=== PATIENT | female | born 1940 | race Caucasian/White ===

== ENCOUNTER → 2023-04-03 14:55 | Outpatient (REF) | payer OTHER, SELFPAY | LOC: RCS 14:55 | PROVIDERS: ATTENDING PHYSICIAN Orthopaedic Surgery; FAMILY PHYSICIAN Physician Assistant | DX: Z01.818 Encounter for other preprocedural examination (principal) | CPT/HCPCS: 93005 ==

== ENCOUNTER → 2023-04-28 12:30 | Outpatient (REF) | payer OTHER, SELFPAY | LOC: DHCBC HW 12:30 | PROVIDERS: ATTENDING PHYSICIAN Internal Medicine Cardiovascular Disease; FAMILY PHYSICIAN Physician Assistant | DX: R94.31 Abnormal electrocardiogram [ECG] [EKG] (principal); R06.09 Other forms of dyspnea; I35.0 Nonrheumatic aortic (valve) stenosis | CPT/HCPCS: 93306 ==

== ENCOUNTER → 2023-05-02 11:28 | Outpatient (REF) | payer OTHER, SELFPAY | LOC: DHCBC/DCA 11:28 | PROVIDERS: ATTENDING PHYSICIAN Internal Medicine Cardiovascular Disease; FAMILY PHYSICIAN Physician Assistant | DX: R94.31 Abnormal electrocardiogram [ECG] [EKG] (principal); R06.09 Other forms of dyspnea | CPT/HCPCS: 78452; 93017; A9500; J2785 ==

== ENCOUNTER 2023-05-11 06:21 | Inpatient (IN) | payer OTHER, SELFPAY ==
--- NOTE | 2023-05-03 09:21 | CM ---
Patient is scheduled for an elective L TKR on 05/15/23. Spoke with patient and her prior to surgery via telephone. Introduced role of Orthopedic Navigator. Patient reports that she lives with her in a two story home. There is one step
to enter and a flight of steps to the second floor. There is a stair glide to the second floor which patient uses. She currently functions independently and uses a rolling walker. She also has a cane and shower seat. She has never had VN services.
PCP is Kristina Stanley.
Discussed orthopedic program and post surgical plans. Reviewed anticipated length of stay and that goal is for her to return home at discharge. Also reviewed outpatient PT. Patient is in agreement with tentative plan and will go directly to
outpatient PT at [facility], [place]. She will have support from her when she goes home.
Patient will complete online education.
Plan: Orthopedic Navigator will remain available to assist with the care of patient and will reassess discharge needs after surgery.
[2023-05-04 13:13] VITALS: BMI 39.8
[2023-05-04 14:03] LABS: Hematocrit 41.9 % (37.0-47.0); Hemoglobin 13.8 g/dL (12.0-16.0); Mean Corp Hgb Conc. 32.9 g/dL (33.0-37.0); Mean Corpuscular Hgb 29.7 pg (27.0-31.0); Mean Corpuscular Volume 90.1 fL (81.0-99.0); Mean Platelet Volume 9.9 fL (7.4-10.4); Platelet Count 215 10^3/uL (130-400); Red Blood Cell Count 4.65 10^6/uL (4.20-5.40); Red Cell Dist. Width 13.3 % (11.5-14.5); White Blood Cell Count 5.8 10^3/uL (4.8-10.8)
[2023-05-04 14:39] LABS: ALT (SGPT) 20 U/L (0-35); AST (SGOT) 22 U/L (14-36); Albumin 3.8 g/dl (3.5-5.0); Alkaline Phosphatase 85 U/L (38-126); Blood Urea Nitrogen 18 mg/dl (7-17); Calcium 9.6 mg/dl (8.4-10.2); Carbon Dioxide 32 mmol/L (22-30); Chloride 103 mmol/L (98-107); Estimated Creatinine Clearance 51 ml/min; Glucose 94 mg/dl (70-99); Potassium 4.2 mmol/L (3.5-5.1); Sodium 141 mmol/L (135-145); Total Bilirubin 0.4 mg/dl (0.2-1.3); Total Protein 6.7 g/dl (6.3-8.2); eGFR > 60.00
[2023-05-05 11:15] LABS: Glycohemoglobin (HgbA1c) 5.9 % (4.0-5.6)
[2023-05-11] VITALS (17 sets, daily range): BP systolic 134–179; BP diastolic 63–96; BMI 39.8
[2023-05-11] MEDS: CELEBREX 200 MG PO (11:36)
[2023-05-11] MEDS: TYLENOL 650 MG PO ×3 (11:36→23:22)
[2023-05-11] MEDS: NORMOSOL-R 1000 IV ×2 (11:53→16:05)
--- NOTE | 2023-05-11 14:31 | W.PN.UPDATE ---
Update Note
Progress Note Update
L knee OA s/p L TKA w/ Dr Walden 05/11/23
- s/p R TKA, 09/2020, by Dr Walden
DVT prophylaxis - ASA, b/l venous foot pumps
HTN - + parameters - monitor BP
Moderate , pulmonary HTN per recent echo - reduce hourly IVF rate to prevent fluid overload
HLD
Chronic SALINAS
Nephrolithiasis
Hypothyroidism
Glaucoma
L eye macular degeneration
Rosacea
Shingles 2011
Hearing impairment
--- NOTE | 2023-05-11 17:04 | OR.RPT ---
Operative Report
Operative Report
Orthopaedic Surgery Operative Note
DATE OF OPERATION: 05/11/2023
PREOPERATIVE DIAGNOSES: Osteoarthritis, left knee.
POSTOPERATIVE DIAGNOSES: Osteoarthritis, left knee.
OPERATION PERFORMED: Left total knee arthroplasty (96854 with 22 modifier).
SURGEON: Zia Walden MD
ASSISTANTS: Gabby Orellana PA-C who assisted with patient and limb positioning and retraction
ANESTHESIA: Spinal
COMPLICATIONS: None.
ESTIMATED BLOOD LOSS: 20mL
DRAINS: None
TOURNIQUET TIME: 53 minutes.
IMPLANTS:
- Naima Persona CR Femur, size 6
- Naima Persona tibia base plate, size C
- Naima Persona ultracongruent articular surface, 10 mm
- DJO [place] bone cement
INDICATIONS: The patient presented to my office with debilitating left knee pain due to osteoarthritis. She had successful right TKA with me two years prior. We reviewed the natural history of this problem, as well as the risks, benefits, and
alternatives of various treatment options. The patient exhausted all nonoperative treatment options and wished to proceed with knee replacement surgery. The patient understood the risks which included, but were not limited to, bleeding, infection,
failure to relieve pain, more pain than preop, damage to blood vessels and nerves, need for reoperation, mechanical failure of the implants, wound healing problems, stiffness, instability, blood clot, pulmonary embolism, myocardial infarction,
pneumonia, arrhythmia, CVA, and . The patient accepted these risks and wished to proceed. All questions were answered, and informed consent was obtained.
PROCEDURE IN DETAIL: The patient was identified in the preoperative holding area. The left knee was identified as the operative site. The patient was taken in the operating room and placed in a supine position on the operating table. Spinal
anesthesia was performed. IV antibiotics and tranexamic acid were administered. A bump was placed under the left hemipelvis. A well-padded tourniquet was placed on the proximal thigh. All bony prominences were well padded. The left lower extremity
was prepped and draped in the usual sterile fashion.
We performed a surgical time-out. An interarticular block was performed with local anesthetic with epinephrine. The limb was exsanguinated with an Esmarch bandage, then the tourniquet was inflated to 250 mmHg. A midline skin incision was made
followed by a medial parapatellar arthrotomy. A subperiosteal peel was performed on the medial tibia. I excised part of the infrapatellar fat pad to improve our visualization as well as tissue over anterior femur. The patella was everted and the
knee was flexed. I excised the remnants of the anterior and posterior cruciate ligaments as well as tibial and femoral osteophytes with rongeurs.
The knee was flexed, and the extramedullary tibial cutting guide was aligned. Mason was aligned at neutral, rotation was centered on the tibial tubercle, and coronal alignment was aligned with the mechanical axis of the tibia and center of the ankle
joint. The cut height was 10mm off the lateral tibia joint surface. The guide was secured into place. The MCL and LCL were protected. The tibia surface was cut. The cut surface was inspected after removal to ensure appropriate height and slope based
on the preoperative plan. The cut was checked with a drop kacey. It was centered nicely at the ankle.
A drill was used to open the femoral canal. The intramedullary distal femoral cutting guide was inserted into the femur. This was set at 5 degrees +0. This was secured into place with three pins. The cut level was checked with an yvan wing. The
distal femur was cut through the cutting guide. The IM guide was reinserted to double check that the level of resection was flush and in appropriate alignment.
[place]land�s line and the transepicondylar axis were marked on the femur. The femoral sizing guide was applied to the anterior femur. Pins were inserted, and the 4-in-1 cutting guide was applied and secured into place. The rotation was compared to
[place]land�s line, the transepicondylar axis, and the neutral tibia cut and was found to be appropriate. The width was checked and found to be appropriate and lateralized on the femur. The anterior, posterior, and chamfur cuts were made. A lamina
prospect manager was used to open the flexion gap, and posterior osteophytes were removed with a curved osteotome. The remnant medial and lateral meniscus were also removed. I prophylactically cauterized the lateral geniculate arteries. A 10mm spacer block
was applied to the flexion gap and was noted to be balanced medially and laterally. The knee was extended, and the block showed symmetric to extension and flexion gaps.
The tibia was exposed and sized. Rotation was set in line with the tibial tubercle and congruent with the femur. The trial was secured into place with two pins. The trial femur was impacted into place, and a trial articular surface was placed. The
knee was taken through range of motion and noted to be stable throughout the arc of motion without gaping or excess tension. The patella tracked centrally throughout the arc of motion without need for further releases. No full thickness cartilage
defects were noted.
The trials were removed. The tibia keel was prepared with the punch and the drill. The bone surfaces were irrigated with sterile saline and dried. The cement was mixed in a vacuum mixer. Cement gun was used to apply cement to the tibial surface and
the undersurface of the tibial implant. Cement was pressurized into the tibial canal and tibia surface. The tibial component was impacted into place. Excess cement was removed. Cement was applied to the femoral surface and the femoral component. The
femoral component was impacted into place, and excess cement removed. A trial articular surface was inserted, and the knee was extended while the cement polymerized. The tourniquet was let down, and meticulous hemostasis was achieved. Dilute
betadine was poured into the wound and allowed to soak for 3 minutes. The knee was irrigated with copious normal saline.
Once the cement was polymerized, the trial articular surface was removed. Any excess cement was removed. The knee was trialed, and the final articular surface was selected and inserted into the tibial locking mechanism. The knee was reduced. A fresh
drape was applied to the surgical field.
The arthrotomy was closed with 0-PDS. Once closed, an interarticular block was performed with local anesthetic with epi. The deep dermal layer was closed with 2-0 PDS, and the subcuticular skin was closed with 3-0 monocryl. A Dermabond Prineo
dressing was applied to the skin in full flexion. Once this was completely dry, a sterile waterproof dressing was applied.
The anesthesia team performed an adductor canal block in the OR. The patient awoke from anesthesia without any difficulties. The sponge and instrument counts were correct x2 at the end of the case.
Of note, 22 modifier was added for BMI >35kg/m2 which required additional time 20 minutes for patient positioning, exposure, and implanting the components.
Aditya Walden MD
[2023-05-11] MEDS: ROXICODONE 5 MG PO (17:19)
[2023-05-11] MEDS: ZOFRAN 4 MG IV (20:36)
[2023-05-11] MEDS: ALPHAGAN P 0.15% EYE DROPS BOTH EYES (20:37)
[2023-05-11] MEDS: BACTROBAN 2% OINTMENT 1 APPLIC NASAL (20:38)
[2023-05-11] MEDS: ANCEF 5 IV (20:38)
[2023-05-11] MEDS: TIMOPTIC 0.5% OPHTHALMIC SOLUTION 1 DROP BOTH EYES (20:39)
[2023-05-11] MEDS: XALATAN OPHTHALMIC SOLUTION 1 DROP BOTH EYES (20:46)
[2023-05-11] MEDS: ALPHAGAN P 0.15% EYE DROPS 1 DROP BOTH EYES (20:47)
[2023-05-11] MEDS: COLACE PO (22:00)
[2023-05-11] MEDS: ZESTRIL PO (22:00)
[2023-05-11] MEDS: ASPIRIN PO (22:00)
[2023-05-11] MEDS: SENOKOT PO (22:01)
[2023-05-11] MEDS: DECADRON PO (22:01)
[2023-05-11] MEDS: TYLENOL PO (22:01)
[2023-05-11] MEDS: ASPIRIN 325 MG PO (23:22)
[2023-05-11] MEDS: ROXICODONE 10 MG PO (23:25)
[2023-05-12] MEDS: COMPAZINE 5 MG PO ×2 (02:10→09:28)
[2023-05-12] MEDS: ANCEF 5 IV (03:13)
[2023-05-12 03:45] VITALS: BP 133/65
[2023-05-12] MEDS: TYLENOL PO (04:56)
[2023-05-12] MEDS: ZOFRAN 4 MG IV (05:11)
[2023-05-12 07:40] VITALS: BP 95/66
--- NOTE | 2023-05-12 08:52 | CM ---
Addendum entered by Jacquelin Reddy 05/12/23 12:44:
Patient did well with therapy. She and her have no concerns about discharge.
Original Note:
Reviewed chart and held rounds with PT, OT and nursing. Patient admitted as planned for elective L TKR. Met with patient and her at bedside. Confirmed information previously obtained for assessment. Also discussed discharge plans. The plan
is for patient to return home at discharge. She will have support from her when she goes home. Patient will go directly to outpatient PT and will go to [facility]. She has an appointment scheduled for Monday, 05/14.
Patient has a rolling walker, cane and shower seat.
She will use [facility] for discharge prescriptions.
[2023-05-12] MEDS: ALPHAGAN P 0.15% EYE DROPS 1 DROP BOTH EYES (09:30)
[2023-05-12] MEDS: TIMOPTIC 0.5% OPHTHALMIC SOLUTION 1 DROP BOTH EYES (09:30)
[2023-05-12] MEDS: PROTONIX IV 40 MG IV (10:13)
[2023-05-12] MEDS: NSS (PRESERVATIVE FREE) 10 ML IV (10:13)
[2023-05-12] MEDS: ASPIRIN 325 MG PO (10:18)
[2023-05-12] MEDS: BACTROBAN 2% OINTMENT 1 APPLIC NASAL (10:18)
[2023-05-12] MEDS: SENOKOT 17.1999999999999993 MG PO (10:19)
[2023-05-12] MEDS: TYLENOL 650 MG PO ×2 (10:19→13:33)
[2023-05-12] MEDS: COLACE 100 MG PO (10:19)
[2023-05-12] MEDS: CELEBREX 200 MG PO (10:19)
[2023-05-12] MEDS: LIPITOR 10 MG PO (10:19)
[2023-05-12] MEDS: DECADRON 4 MG PO (10:20)
[2023-05-12] MEDS: SYNTHROID 112 MCG PO (10:23)
[2023-05-12] MEDS: ZESTRIL PO (10:30)
[2023-05-12 11:10] VITALS: BP 162/65; PULSE 69; O2SAT 95
--- NOTE | 2023-05-12 11:30 | PTCARENOTE ---
Patient vomited about 200 ml greenish emesis this am. Compazine po given as ordered at 0928. Patient with relief. AM medications given late at 1019. While taking medication, patient vomited about 150 ml of greenish emesis. Did not see any whole
pills in emesis. Will continue to monitor.
[2023-05-12 11:37] VITALS: BP 162/65
--- NOTE | 2023-05-12 12:00 | W.PN.ORTHO ---
Today's Communication / Plan
-
Monitor N/V.
Work w/ PT and OT as able.
Possible d/c later today if N/V better and does well w/ PT and OT.
Assessment
.
Distal Motor Intact: Yes
Dressing:
Clean, dry and intact.
Assessment:
L knee OA s/p L TKA w/ Dr Walden 05/11/23
- s/p R TKA, 09/2020, by Dr Walden
DVT prophylaxis - ASA, b/l venous foot pumps
PONV - likely Oxycodone induced as N/V occurred after 10 mg of Oxycodone last night
- Change Oxycodone to Tramadol for mod-severe pain
- Change PO Compazine from q6hprn to TID
- Continue IV Zofran q6hprn
- Add daily Protonix; IV STAT dose given this AM
- On Decadron already which can further alleviate N/V
- Monitor and adjust meds further if indicated
HTN - + parameters - monitor BP
Moderate , pulmonary HTN per recent echo - reduced hourly IVF rate to prevent fluid overload
HLD
Chronic SALINAS
Nephrolithiasis
Hypothyroidism
Glaucoma
L eye macular degeneration�
Rosacea
Shingles 2011
Hearing impairment bilaterally
Plan
.
Surgery / Date: R TKA w/ Dr Walden 05/11/23
DVT Prophylaxis: Aspirin
Activity:
Out of bed.
PT/OT
Discharge Plan: Home w/ Outpatient PT
Subjective
.
.:
Patient examined resting in bed today.
R knee pain well controlled at rest.
Nausea/vomiting noted overnight and into this AM.
Denies any other new complaints.
Vital Signs and Labs
.
Vital Signs and Labs:
Lab Results
05/04/23 13:03
05/04/23 13:03
Temp Pulse Resp BP Pulse Ox
97.9 F 65 18 162/65 95
05/12/23 11:37 05/12/23 11:37 05/12/23 11:37 05/12/23 11:37 05/12/23 11:37
Non-invasive Hgb result: 11.2
Physical Exam
-
HEENT: No pallor, cyanosis, or jaundice. Throat clear. Extremely [place].
NECK: Supple. No JVD.
RESPIRATORY: Lungs clear to auscultation.
CVS: S1, S2 normal. RRR.�
ABDOMEN: Soft, non-tender. No distension. Obese.
EXTREMITIES: Strength equal, no calf pain with palpation/dorsiflexion. Calves soft.
GENERATOR OPERATOR: AOx3. No focal deficits. 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
[2023-05-12] MEDS: ZESTRIL 20 MG PO (12:06)
--- NOTE | 2023-05-12 12:50 | W.DS.TRANS ---
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
-
Discharge Instructions:
Sleep Apnea Risk Intermediate
Discharge Diagnosis/Procedures L knee OA s/p L TKA w/ Dr Walden 05/11/23
Diet Regular
Activity As tolerated,With Walker
Driving Restrictions Not until seen by your Dr
Bathing Restrictions OK to Shower
Other Services PT
Wound Care Leave dressing on until seen by surgeon's office
for a follow-up in 2 weeks.
Instructions:
Stand-Alone Forms: Total Hip/Knee Replacement D/C
Changes to Home Medications: Yes
Discharge Medications:
DC Medications w/original date entered in [facility]
atorvastatin 10 mg tablet 10 mg PO DAILY High Cholesterol 03/11/12
brimonidine 0.15 % eye drops (Alphagan P) 1 drp BOTH EYES TID Eye Condition 03/11/12
levothyroxine 112 mcg tablet 112 mcg PO DAILY AT 0700 Thyroid 03/11/12
latanoprost (PF) 0.005 % eye drops in a dropperette 1 drp BOTH EYES BID Eye Condition 05/05/23
timolol maleate (PF) 0.5 % eye drops in a dropperette 1 drp BOTH EYES BID Eye Condition 05/05/23
vit C 250 mg-vit E 90 mg-zinc 40 mg-copper 1 [id number] capsule (PreserVision AREDS-2) 1 tab PO BID Supplement 05/05/23
acetaminophen 325 mg tablet 650 mg PO Q4HWA #60 tabs 05/12/23
aspirin 325 mg tablet 325 mg PO DAILY #30 tabs 05/12/23
celecoxib 100 mg capsule (Celebrex) 100 mg PO BID #30 caps 05/12/23
dexamethasone 4 mg tablet 4 mg PO BID #7 tabs 05/12/23
docusate sodium 100 mg capsule 100 mg PO BID #30 caps 05/12/23
lisinopril 20 mg tablet 20 mg PO DAILY Blood Pressure #0 tabs 05/12/23
pantoprazole 40 mg tablet,delayed release (Protonix) 40 mg PO DAILY #30 tabs 03/08/24
prochlorperazine maleate 5 mg tablet 5 mg PO TID nausea/vomiting #21 tabs 05/12/23
sennosides 8.6 mg tablet (Senna Lax) 17.2 mg PO BID #30 tabs 05/12/23
tramadol 50 mg tablet 50 - 100 mg PO Q6H PRN moderate-severe pain #30 tabs 05/12/23
Home Medication Changes
acetaminophen 325 mg tablet 650 mg PO Q4HWA #60 tabs 05/12/23
aspirin 325 mg tablet 325 mg PO DAILY #30 tabs 05/12/23
celecoxib 100 mg capsule (Celebrex) 100 mg PO BID #30 caps 05/12/23
dexamethasone 4 mg tablet 4 mg PO BID #7 tabs 05/12/23
docusate sodium 100 mg capsule 100 mg PO BID #30 caps 05/12/23
pantoprazole 40 mg tablet,delayed release (Protonix) 40 mg PO DAILY #30 tabs 05/12/23
prochlorperazine maleate 5 mg tablet 5 mg PO TID nausea/vomiting #21 tabs 05/12/23
sennosides 8.6 mg tablet (Senna Lax) 17.2 mg PO BID #30 tabs 05/12/23
tramadol 50 mg tablet 50 - 100 mg PO Q6H PRN moderate-severe pain #30 tabs 05/12/23
Pending Results: No
== END 2023-05-12 14:11 | disposition home or self-care (01) | DRG 470 ==
LOC: 2 SOUTH 06:21
PROVIDERS: ADMITTING PHYSICIAN Orthopaedic Surgery; FAMILY PHYSICIAN Physician Assistant
PROC: 0SRD0J9 Replacement of Left Knee Joint with Synthetic Substitute, Cemented, Open Approach (ICD-10-PCS; 2023-05-11)
DX: M17.12 Unilateral primary osteoarthritis, left knee (principal); I10 Essential (primary) hypertension; R11.2 Nausea with vomiting, unspecified
CPT/HCPCS: 36415; 73560; 80053; 83036; 85027; 87070; 97110; 97116; 97163; 97166; 97530; 97535; C1713; C1776

== ENCOUNTER → 2023-06-07 13:34 | Outpatient (REF) | payer OTHER, SELFPAY | LOC: RAD 13:34 | PROVIDERS: ATTENDING PHYSICIAN Physician Assistant Surgical; FAMILY PHYSICIAN Physician Assistant | DX: Z96.652 Presence of left artificial knee joint (principal) | CPT/HCPCS: 93971 ==

== ENCOUNTER → 2024-05-14 14:15 | Outpatient (REF) | payer OTHER, SELFPAY | LOC: RCS 14:15 | PROVIDERS: ATTENDING PHYSICIAN Internal Medicine Cardiovascular Disease; FAMILY PHYSICIAN Physician Assistant | DX: I35.0 Nonrheumatic aortic (valve) stenosis (principal) | CPT/HCPCS: 93306 ==